=== PATIENT | female | born 1985 | race African-American/Black ===

== ENCOUNTER → 2021-11-19 | Outpatient (CLI) | payer OTHER | LOC: MHCPAIN 14:27 | DX: M25.551 Pain in right hip (principal); M25.552 Pain in left hip; M70.61 Trochanteric bursitis, right hip | CPT/HCPCS: G0463 ==

== ENCOUNTER → 2021-12-10 | Outpatient (CLI) | payer OTHER | LOC: COL.RAD 08:51 | DX: M87.052 Idiopathic aseptic necrosis of left femur (principal); M87.051 Idiopathic aseptic necrosis of right femur; R19.09 Other intra-abdominal and pelvic swelling, mass and lump | CPT/HCPCS: A9585; J3301; Q9967 ==